=== PATIENT | male | born 2000 | race Caucasian/White ===

== ENCOUNTER 2021-03-15 21:17 | Emergency (ER) | payer OTHER ==
[~2021-03-15] VITALS: Ht 185.4 cm; Wt 92.2 kg
[2021-03-15 23:29] VITALS: BP 122/69
[2021-03-15] MEDS ORDERED: IBUPROFEN 600MG TAB PO ONE (23:30)
[2021-03-15] MEDS ORDERED: AUGMENTIN 875 MG TAB PO ONE (23:30)
[2021-03-15] MEDS ORDERED: OXYMETAZOLINE 0.05% NASAL SPRAY (AFRIN) ONE (23:30)
[2021-03-15] MEDS ORDERED: FLON1SPR NARES (23:41)
[2021-03-15] MEDS ORDERED: IBUP-1022 PO (23:41)
[2021-03-15] MEDS ORDERED: AUGM875T28 PO (23:41)
[2021-03-15] MEDS ORDERED: ZYRTTAB8 PO (23:41)
== END 2021-03-16 00:01 | disposition home or self-care (01) ==
LOC: M ED 21:17
DX: H66.001 Acute suppurative otitis media without spontaneous rupture of ear drum, right ear (principal); J30.2 Other seasonal allergic rhinitis